=== PATIENT | female | born 1965 | race Caucasian/White ===

== ENCOUNTER 2016-12-15 11:19 | Emergency (ER) | payer OTHER ==
[~2016-12-15] VITALS: Ht 160 cm; Wt 94.0 kg
[2016-12-15] MEDS ORDERED: KETOROLAC 30MG/ML VIAL IM STA (16:01)
[2016-12-15] MEDS ORDERED: METOCLOPRAMIDE HCL 10MG TABLET PO ONE (16:15)
[2016-12-15 16:48] VITALS: BP 140/86
== END 2016-12-15 16:57 | disposition home or self-care (01) ==
LOC: ER 11:19
DX: R51 Headache (principal); R42 Dizziness and giddiness; I10 Essential (primary) hypertension
CPT/HCPCS: 96372; 99283; J1885; Z7610; J8597